=== PATIENT | male | born 1935 | race Caucasian/White ===

== ENCOUNTER 2018-06-15 20:50 | Inpatient (IN) ==
[2018-06-16] MEDS ORDERED: Ipratropium/Albuterol Neb 3 ML IH PRN (00:16)
[2018-06-16] MEDS ORDERED: Nitroglycerin 0.4 MG TAB.SUBL SL PRN (00:17)
[2018-06-16] MEDS ORDERED: Isovue-370 500 ML BOTTLE IVP ONE (00:21)
[2018-06-16] MEDS ORDERED: Dextrose Gel 15 GM/37.5 ML TUBE PO PRN ×2 (00:24)
[2018-06-16] MEDS ORDERED: *HR* Dextrose 50 % in Water (Syg) 50 ML SYRINGE IVP PRN (00:24)
[2018-06-16] MEDS ORDERED: 0.9 % Sodium Chloride 1,000 ML IVC SCH (00:30)
--- NOTE | 2018-06-16 00:49 | Internal Med History&Physical ---
Date of Encounter: 06/16/18 Time of Encounter: 00:45 Internal Medicine - H&P: HPI Chief complaint: hand pain Admitted From: Home Plans for Post Hospital Care: Home History of present illness: Mani Nowak is an 83 year old man with coronary artery disease s/p CABG, atrial fibrillation on warfarin, diabetes on metformin and hypertension who presents here on transfer from [facility] where presented with complaints of 2 days of right hand pain and swelling. He denies specific trauma to the area but does report frequent falls. At [facility] he was given 1 dose of ceftriaxone to cover his cellulitis and presumed UTI because of a slightly abnormal UA. Here he reports feeling generally well other than pain in his hand. He is a rather poor historian and does not give much pertinent information. Past Med Surg Social Fam HX - Past Medical History Medical history: hyperlipidemia, hypertension, myocardial infarction - Past Surgical History Surgical History: appendectomy, cholecystectomy Additional surgical history: CABG - Social History Smoking Status: Former smoker Smokeless Tobacco Status: No Alcohol use: none Drug use: none All Systems PM: A 10-system review of systems was performed and is negative for pertinent findings except as documented above in the HPI. Family history is noncontributory. - Constitutional Vitals: Temp Pulse Resp BP Pulse Ox 98 F 76 16 126/70 94 06/16/18 00:16 06/16/18 00:16 06/16/18 00:16 06/16/18 00:16 06/16/18 00:16 Exam: Vitals: Reviewed General: Well developed elderly man lying in bed in NAD. Skin: Warm and supple. HEENT: Moist mucous membranes. No conjunctivae pallor. Neck: No lymphadenopathy. No JVD. No carotid bruits. No palpable thyroid. Chest: Normal thoracic expansion. Normal breath sounds. Clear to auscultation. Heart: Irregularly irregular. Abdomen: Non-distended, soft and non-tender to palpation. No peritoneal reaction. Extremities: Right hand with mild erythema and dorsal swelling with limited movement at the MCP and PIP joints, tender to palpation. Neurological: Awake, alert and oriented to person, place and time. No focal deficits. Psych: Affect appropriate. - Assessment and plan (1) Cellulitis of right hand Current Visit: Yes Status: Acute Assessment and plan: Will obtain blood cultures and start IV vancomycin. Will send for CT w/ contrast for more thorough evaluation. (2) Hx of CABG Current Visit: Yes Status: Acute Assessment and plan: Asymptomatic. Continue daily aspirin & statin. (3) Diabetes mellitus Current Visit: Yes Status: Acute Assessment and plan: Noted to be on metformin. Will place on insulin sliding scale for now. 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 Qualifiers: Hypertension type: essential hypertension Qualified Code(s): I10 - Essential (primary) hypertension (5) Afib Current Visit: Yes Status: Acute Assessment and plan: Will place on telemetry. Seen to have a subtherapeutic INR. Will continue daily warfarin. Qualifiers: Atrial fibrillation type: chronic Qualified Code(s): I48.2 - Chronic atrial fibrillation - Time Spent With Patient Total time spent is greater than 50% in coordination of care (as documented) at patient's floor/unit and/or counseling patient: Greater than 35 minutes
[2018-06-16 01:27] LABS: INR 1.1; Prothrombin Time 12.6 Seconds (9.4-12.1)
[2018-06-16 01:28] LABS: Albumin 3.7 g/dL (3.5-5.7); Albumin/Globulin Ratio 1.3 (1.1-2.2); Bilirubin,Direct 0.8 mg/dL (0.0-0.2); Bilirubin,Indirect 1.7 mg/dL (0.0-1.2); Bilirubin,Total 2.5 mg/dL (0.3-1.0); Globulin 2.9 g/dL (2.4-3.5); Total Protein 6.6 g/dL (6.4-8.9)
[2018-06-16 01:29] LABS: Activated Partial Thrombo Time 30.7 Seconds (26.0-36.0); BUN/Creatinine Ratio 19 (6-26); Blood Urea Nitrogen 18 mg/dL (8-23); Carbon Dioxide 26 mEq/L (23-29); Chloride 102 mEq/L (98-107); Glucose 131 mg/dL (70-105); Osmolality,Calculated 286 (280-300); Potassium 3.5 mEq/L (3.5-5.1); Sodium 136 mEq/L (136-145); eGFR For Non-African Americans > 60 (> 60)
[2018-06-16 01:46] LABS: Basophils # 0.1 K/mcL (0.0-0.2); Basophils % 0.5 %; Eosinophils # 0.1 K/mcL (0.0-0.6); Hematocrit 39.4 % (37.5-50.1); Hemoglobin 13.8 g/dL (12.9-16.9); Immature Granulocytes % 0.5 % (0-4); Immature Platelets 3.3 % (1.1-6.1); Lymphocytes # 3.5 K/mcL (0.6-4.6); Lymphocytes % 27.6 %; Mean Corpuscular Volume 97.5 fL (83.0-100.0); Mean Platelet Volume 9.6 fL (9.4-12.4); Monocytes # 1.8 K/mcL (0.0-1.3); Monocytes % 14.4 %; Neutrophils # 7.1 K/mcL (1.6-8.9); Platelet Count 219 K/mcL (140-400); Red Blood Count 4.04 M/mcL (4.19-5.50); Red Cell Distribution Width 13.1 % (11.5-14.5)
[2018-06-16 01:47] LABS: Mean Corpuscular Hemoglobin 34.2 pg (28.0-33.3)
[2018-06-16] MEDS ORDERED: *HR* Warfarin 3 MG TABLET PO ONE (02:04)
[2018-06-16] MEDS: *HR* Enoxaparin 100 MG/ML SYRINGE SQ SCH ×2 (05:00→18:22)
[2018-06-16 05:13] LABS: Bilirubin,Urine Negative (Negative); Blood,Urine Negative (Negative); Clarity,Urine Clear (Clear); Color,Urine Dark Yellow (Yellow); Glucose,Urine (UA) 100 mg/dL (Normal); Ketones,Urine Trace mg/dL (Negative); Leukocyte Esterase,Urine Trace (Negative); Nitrite,Urine Positive (Negative); PH,Urine 5.5 pH Units (5.0-8.0); Protein,Urine Trace mg/dL (Neg-Trace); Urobilinogen,Urine Normal (Normal)
[2018-06-16 05:17] LABS: Bacteria,Urine Few per hpf (None-Few); Hyaline Casts,Urine None Seen per lpf (None-Few); RBC,Urine 0-3 per hpf (0-3)
[2018-06-16] MEDS ORDERED: *HR* Heparin 5,000 UNIT/ML VIAL SQ SCH (06:00)
--- NOTE | 2018-06-16 09:15 | Event Note ---
Date of Encounter: 06/16/18 Time of Encounter: 09:14 Patient seen and examined earlier this am by hospitalist services. Currently denies any pain or discomfort. R arm with strong radial pulse- he is unable to close hand- encouraged patient to keep R arm elevated- warm compresses
[2018-06-16] MEDS: Cholecalciferol (D-3) 1,000 UNIT TABLET PO SCH (10:28)
[2018-06-16] MEDS: Aspirin 81 MG TAB.CHEW PO SCH (10:28)
[2018-06-16] MEDS: Insulin LISPRO 300 UNITS/3 ML VIAL SQ SCH ×4 (10:30→20:20)
[2018-06-16] MEDS ORDERED: Warfarin perPT PO PRN (18:00)
[2018-06-16] MEDS: *HR* HYDROcodone/Acet 5/325 mg TABLET PO PRN (19:40)
[2018-06-17 04:24] LABS: BUN/Creatinine Ratio 22 (6-26); Blood Urea Nitrogen 21 mg/dL (8-23); Calcium 9.1 mg/dL (8.6-10.3); Carbon Dioxide 26 mEq/L (23-29); Chloride 104 mEq/L (98-107); Glucose 106 mg/dL (70-105); Osmolality,Calculated 289 (280-300); Potassium 3.7 mEq/L (3.5-5.1); Sodium 138 mEq/L (136-145); eGFR For Non-African Americans > 60 (> 60)
[2018-06-17 04:40] LABS: Basophils # 0.1 K/mcL (0.0-0.2); Eosinophils # 0.4 K/mcL (0.0-0.6); Eosinophils % 3.4 %; Hematocrit 39.6 % (37.5-50.1); Hemoglobin 13.6 g/dL (12.9-16.9); Immature Granulocytes % 0.7 % (0-4); Immature Platelets 4.4 % (1.1-6.1); Lymphocytes % 26.1 %; Mean Corpuscular HGB Conc 34.3 g/dL (31.6-35.5); Mean Corpuscular Hemoglobin 33.5 pg (28.0-33.3); Mean Platelet Volume 10.2 fL (9.4-12.4); Monocytes # 1.5 K/mcL (0.0-1.3); Monocytes % 12.9 %; Neutrophils # 6.3 K/mcL (1.6-8.9); Platelet Count 225 K/mcL (140-400); Red Blood Count 4.06 M/mcL (4.19-5.50); Red Cell Distribution Width 13.1 % (11.5-14.5); Segmented Neutrophils % 55.9 %
[2018-06-17 04:42] LABS: Mean Corpuscular Volume 97.5 fL (83.0-100.0)
[2018-06-17] MEDS: *HR* Enoxaparin 100 MG/ML SYRINGE SQ SCH ×2 (06:11→17:41)
[2018-06-17] MEDS: Insulin LISPRO 300 UNITS/3 ML VIAL SQ SCH ×4 (08:09→21:32)
[2018-06-17] MEDS: Cholecalciferol (D-3) 1,000 UNIT TABLET PO SCH (08:27)
[2018-06-17] MEDS: Aspirin 81 MG TAB.CHEW PO SCH (08:27)
[2018-06-17] MEDS: *HR* HYDROcodone/Acet 5/325 mg TABLET PO PRN (08:31)
--- NOTE | 2018-06-17 10:16 | Internal Med Progress Note ---
Hospitalist Progress Note - Encounter Date of Encounter: 06/17/18 Time of Encounter: 10:16 - Subjective Interval History: Patient was seen and examined at bedside. Currently denies any pain or discomfort. I did review tx plan with patient who verbalized understanding - Exam Vitals: Temp Pulse Resp BP Pulse Ox 98.2 F 79 16 158/71 93 06/17/18 07:40 06/17/18 07:40 06/17/18 07:40 06/17/18 07:40 06/17/18 07:40 Exam: Vitals: Reviewed General: Well developed elderly man lying in bed in NAD. Skin: Warm and supple. HEENT: Moist mucous membranes. No conjunctivae pallor. Neck: No lymphadenopathy. No JVD. No carotid bruits. No palpable thyroid. Chest: Normal thoracic expansion. Normal breath sounds. Clear to auscultation. Heart: Irregularly irregular. Abdomen: Non-distended, soft and non-tender to palpation. No peritoneal reaction. Extremities: Right hand with mild erythema and dorsal swelling with limited movement at the MCP and PIP joints, tender to palpation. Neurological: Awake, alert and oriented to person, place and time. No focal deficits. Psych: Affect appropriate. - Assessment and Plan (1) Cellulitis of right hand Current Visit: Yes Status: Acute Assessment and Plan: Will obtain blood cultures and start IV vancomycin. Will send for CT w/ contrast for more thorough evaluation. 06/17/2018 Blood culture are pending cont with IV Vanc/ zosyn - added CT w/ contrast IMPRESSION: 1. Diffuse soft tissue swelling present about the right wrist and hand with no well-defined abscess identified. 2. No acute osseous abnormality. 3. Moderate polyarticular osteoarthritis. (2) Hx of CABG Current Visit: Yes Status: Acute Assessment and Plan: Asymptomatic. Continue daily aspirin & statin. 06/17/2018 No chest pain continue aspirin and statin (3) Diabetes mellitus Current Visit: Yes Status: Acute Assessment and Plan: Noted to be on metformin. Will place on insulin sliding scale for now. 06/17/2018 Accu-Cheks before meals at bedtime with sliding scale insulin. Hold oral metformin for now (4) HTN (hypertension) Current Visit: Yes Status: Acute Assessment and Plan: Will continue home anti-hypertensives. 06/17/2018 Blood pressure is controlled continue with home medications (5) Afib Current Visit: Yes Status: Acute Assessment and Plan: Will place on telemetry. Seen to have a subtherapeutic INR. Will continue daily warfarin. 06/17/2018 cont tele rate controlled - cont BB- cont warfain, monitor INR -subtherapeutic continue with Lovenox bridge - Time Spent with Patient Total time spent is greater than 50% in coordination of care (as documented) at patient's floor/unit and/or counseling patient: Internal Medicine: Result - Labs CBC & Chem 7: 06/17/18 03:22 06/17/18 03:22 Labs: Short CBC 06/17/18 Range/Units 03:22 WBC 11.3 H (4.3-11.1) K/mcL Hgb 13.6 (12.9-16.9) g/dL Hct 39.6 (37.5-50.1) % Plt Count 225 (140-400) K/mcL Neutrophils # 6.3 (1.6-8.9) K/mcL BMP 06/17/18 03:22 Sodium 138 Potassium 3.7 Chloride 104 Carbon Dioxide 26 BUN 21 Creatinine 0.94 Glucose 106 H Calcium 9.1 - ABG Interpretation ABG results: PT/INR, D-dimer PT 12.6 Seconds (9.4-12.1) H 06/16/18 00:50 - Impressions Impressions Hand CT 06/16/18 00:21 IMPRESSION: 1. Diffuse soft tissue swelling present about the right wrist and hand with no well-defined abscess identified. 2. No acute osseous abnormality. 3. Moderate polyarticular osteoarthritis. 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
[2018-06-17] MEDS: Piperacillin/Tazobactam 3.375 GM in 0.9 % Sodium Chloride Mini Bag 100 ML IVPB SCH (14:20)
[2018-06-17 15:26] LABS: INR 1.1; Prothrombin Time 12.3 Seconds (9.4-12.1)
[2018-06-17] MEDS ORDERED: *HR* Warfarin 5 MG TABLET PO ONE (18:00)
[2018-06-17] MEDS: Gabapentin 100 MG CAPSULE PO SCH (20:46)
[2018-06-18] MEDS: Piperacillin/Tazobactam 3.375 GM in 0.9 % Sodium Chloride Mini Bag 100 ML IVPB SCH ×2 (00:03→07:56)
[2018-06-18 04:40] LABS: INR 1.1; Prothrombin Time 12.8 Seconds (9.4-12.1)
[2018-06-18] MEDS: *HR* Enoxaparin 100 MG/ML SYRINGE SQ SCH (05:41)
[2018-06-18] MEDS ORDERED: Aminoglycoside Consult 1 EACH MC ONE (07:21)
[2018-06-18] MEDS: Insulin LISPRO 300 UNITS/3 ML VIAL SQ SCH ×4 (07:45→22:04)
[2018-06-18] MEDS: Multivit/Ca/Min/Fe/FA 1 TAB TABLET PO SCH (07:54)
[2018-06-18] MEDS: Cholecalciferol (D-3) 1,000 UNIT TABLET PO SCH (07:54)
[2018-06-18] MEDS: Aspirin 81 MG TAB.CHEW PO SCH (07:54)
[2018-06-18 10:27] LABS: BUN/Creatinine Ratio 18 (6-26); Blood Urea Nitrogen 18 mg/dL (8-23); Calcium 9.5 mg/dL (8.6-10.3); Carbon Dioxide 26 mEq/L (23-29); Chloride 103 mEq/L (98-107); Glucose 197 mg/dL (70-105); Osmolality,Calculated 291 (280-300); Potassium 3.8 mEq/L (3.5-5.1); Sodium 137 mEq/L (136-145); eGFR For Non-African Americans > 60 (> 60)
[2018-06-18 13:06] LABS: Basophils # 0.1 K/mcL (0.0-0.2); Basophils % 0.9 %; Eosinophils # 0.4 K/mcL (0.0-0.6); Eosinophils % 4.2 %; Hematocrit 39.4 % (37.5-50.1); Hemoglobin 13.4 g/dL (12.9-16.9); Immature Granulocytes % 0.8 % (0-4); Lymphocytes # 2.3 K/mcL (0.6-4.6); Lymphocytes % 21.7 %; Mean Platelet Volume 10.1 fL (9.4-12.4); Monocytes # 1.4 K/mcL (0.0-1.3); Monocytes % 13.2 %; Neutrophils # 6.2 K/mcL (1.6-8.9); Platelet Count 238 K/mcL (140-400); Red Blood Count 4.06 M/mcL (4.19-5.50); Segmented Neutrophils % 59.2 %
--- NOTE | 2018-06-18 14:05 | Internal Med Progress Note ---
Hospitalist Progress Note - Encounter Date of Encounter: 06/18/18 Time of Encounter: 14:02 - Subjective Interval History: Patient was seen and examined at bedside. He sitting up in a chair eating breakfast. Right hand is much improved he has almost recovered full range of motion. Denies any pain or discomfort at this time I did review the treatment p yen with the patient who verbalized understanding. - Exam Vitals: Temp Pulse Resp BP Pulse Ox 97.5 F L 65 16 119/62 98 06/18/18 11:24 06/18/18 11:24 06/18/18 11:24 06/18/18 11:24 06/18/18 11:24 Exam: Vitals: Reviewed General: Well developed elderly man lying in bed in NAD. Skin: Warm and supple. HEENT: Moist mucous membranes. No conjunctivae pallor. Neck: No lymphadenopathy. No JVD. No carotid bruits. No palpable thyroid. Chest: Normal thoracic expansion. Normal breath sounds. Clear to auscultation. Heart: Irregularly irregular. Abdomen: Non-distended, soft and non-tender to palpation. No peritoneal reaction. Extremities: Right hand with mild dorsal swelling with improved movement at the MCP and PIP joints Neurological: Awake, alert and oriented to person, place and time. No focal deficits. Psych: Affect appropriate. - Assessment and Plan (1) Cellulitis of right hand Current Visit: Yes Status: Acute Assessment and Plan: Will obtain blood cultures and start IV vancomycin. Will send for CT w/ contrast for more thorough evaluation. 06/17/2018 Blood culture are pending cont with IV Vanc/ zosyn - added CT w/ contrast IMPRESSION: 1. Diffuse soft tissue swelling present about the right wrist and hand with no well-defined abscess identified. 2. No acute osseous abnormality. 3. Moderate polyarticular osteoarthritis. 06/18/2018 Much improved today patient has almost full range of motion of right hand no erythremia noted mild edema Blood cultures with no growth to date We will switch to oral Bactrim DS 1 by mouth twice a day (2) Hx of CABG Current Visit: Yes Status: Acute Assessment and Plan: Asymptomatic. Continue daily aspirin & statin. 06/17/2018 No chest pain continue aspirin and statin 06/18/2018 Asymptomatic we will continue with home medications (3) Diabetes mellitus Current Visit: Yes Status: Acute Assessment and Plan: Noted to be on metformin. Will place on insulin sliding scale for now. 06/17/2018 Accu-Cheks before meals at bedtime with sliding scale insulin. Hold oral metformin for now 06/18/2018 Glucose has been stable continue with Accu-Cheks before meals at bedtime with sliding scale insulin continue to hold metformin at this time (4) HTN (hypertension) Current Visit: Yes Status: Acute Assessment and Plan: Will continue home anti-hypertensives. 06/17/2018 Blood pressure is controlled continue with home medications 06/18/2018 Currently stable continue with all medications (5) Afib Current Visit: Yes Status: Acute Assessment and Plan: Will place on telemetry. Seen to have a subtherapeutic INR. Will continue daily warfarin. 06/17/2018 cont tele rate controlled - cont BB- cont warfain, monitor INR -subtherapeutic continue with Lovenox bridge 06/18/2018 Rate controlled continue with beta kayleigh warfarin INR was subtherapeutic continue with Lovenox bridge-patient does have a history of falls we will discuss risk and benefits of anticoagulation with the patient he may benefit from our close concerns about patient's ability to take medications. He did make a comment sometimes" I take my medications at times I take too many" (6) Subtherapeutic international normalized ratio (INR) Current Visit: Yes Status: Acute Assessment and Plan: 1 patient is on Coumadin for atrial fibrillation presented with subtherapeutic INR 1.1 bridged with Lovenox. Patient reports that he is noncompliant with his medications. He also has history of frequent falls-risks and benefits of anticoagulation will need to be reviewed with the patient. Consulting social work case manager for home health PT OT evaluation (7) Complicated UTI (urinary tract infection) Current Visit: Yes Status: Acute Assessment and Plan: 1 patient did arrive from outlying facility time urinalysis indicative of UTI urine culture growing staphylococcus epi. Patient was originally on vancomycin and Zosyn which was sensitive to vancomycin. We will convert to oral Macrobid and monitor closely. Currently denies any urinary symptoms (8) Frequent falls Current Visit: Yes Status: Acute Assessment and Plan: Patient reports that he experienced frequent falls and has had approximately 3 falls in the past month. Patient is on anticoagulation which is concerning left discussed risk and benefits. PT OT has been consulted patiently placed on fall precautions - Time Spent with Patient Total time spent is greater than 50% in coordination of care (as documented) at patient's floor/unit and/or counseling patient: Internal Medicine: Result - Labs CBC & Chem 7: 06/18/18 10:54 06/18/18 09:39 Labs: Short CBC 06/18/18 Range/Units 10:54 WBC 10.5 (4.3-11.1) K/mcL Hgb 13.4 (12.9-16.9) g/dL Hct 39.4 (37.5-50.1) % Plt Count 238 (140-400) K/mcL Neutrophils # 6.2 (1.6-8.9) K/mcL BMP 06/18/18 09:39 Sodium 137 Potassium 3.8 Chloride 103 Carbon Dioxide 26 BUN 18 Creatinine 1.00 Glucose 197 H Calcium 9.5 - ABG Interpretation ABG results: PT/INR, D-dimer PT 12.8 Seconds (9.4-12.1) H 06/18/18 04:01 Consult Discharge Plan - Plan Referrals: NONE,PCP [Primary Care Provider] - (3) Diabetes mellitus Qualifiers: 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
[2018-06-18] MEDS: Nitrofurantoin (BID) 100 MG CAPSULE PO SCH (17:07)
[2018-06-18] MEDS ORDERED: *HR* Warfarin 5 MG TABLET PO ONE (18:00)
[2018-06-18] MEDS: Sulfamethoxazole/Trimeth DS 1 EACH TABLET PO SCH (22:08)
[2018-06-18] MEDS: Gabapentin 100 MG CAPSULE PO SCH (22:08)
[2018-06-19] MEDS: *HR* HYDROcodone/Acet 5/325 mg TABLET PO PRN (03:54)
[2018-06-19 04:50] LABS: INR 1.1; Prothrombin Time 12.6 Seconds (9.4-12.1)
[2018-06-19 05:09] LABS: BUN/Creatinine Ratio 20 (6-26); Blood Urea Nitrogen 20 mg/dL (8-23); Calcium 9.2 mg/dL (8.6-10.3); Carbon Dioxide 25 mEq/L (23-29); Chloride 104 mEq/L (98-107); Glucose 129 mg/dL (70-105); Osmolality,Calculated 292 (280-300); Potassium 4.4 mEq/L (3.5-5.1); Sodium 139 mEq/L (136-145); eGFR For Non-African Americans > 60 (> 60)
[2018-06-19 05:17] LABS: Basophils # 0.1 K/mcL (0.0-0.2); Basophils % 1.1 %; Eosinophils # 0.5 K/mcL (0.0-0.6); Eosinophils % 4.7 %; Hematocrit 39.2 % (37.5-50.1); Hemoglobin 13.6 g/dL (12.9-16.9); Immature Granulocytes % 0.8 % (0-4); Lymphocytes # 2.9 K/mcL (0.6-4.6); Lymphocytes % 25.7 %; Mean Corpuscular Hemoglobin 34.2 pg (28.0-33.3); Mean Corpuscular Volume 98.5 fL (83.0-100.0); Monocytes # 1.4 K/mcL (0.0-1.3); Neutrophils # 6.3 K/mcL (1.6-8.9); Platelet Count 205 K/mcL (140-400); Red Blood Count 3.98 M/mcL (4.19-5.50); Red Cell Distribution Width 14.2 % (11.5-14.5); Segmented Neutrophils % 55.7 %
[2018-06-19 05:18] LABS: Mean Corpuscular HGB Conc 34.7 g/dL (31.6-35.5)
[2018-06-19] MEDS: Insulin LISPRO 300 UNITS/3 ML VIAL SQ SCH ×3 (09:25→15:59)
[2018-06-19] MEDS: Sulfamethoxazole/Trimeth DS 1 EACH TABLET PO SCH (09:36)
[2018-06-19] MEDS: Cholecalciferol (D-3) 1,000 UNIT TABLET PO SCH (09:37)
[2018-06-19] MEDS: Aspirin 81 MG TAB.CHEW PO SCH (09:37)
[2018-06-19] MEDS: Multivit/Ca/Min/Fe/FA 1 TAB TABLET PO SCH (09:37)
[2018-06-19] MEDS: Nitrofurantoin (BID) 100 MG CAPSULE PO SCH ×2 (09:37→16:21)
[2018-06-19 11:17] VITALS: BP 130/77
--- NOTE | 2018-06-19 13:32 | Discharge Summary ---
- NOTES TO OUTPATIENT PROVIDER Notes to Outpatient Provider: Cellulitis of right hand/UTI received. IV Vanco and Zosyn and transitioned to Bactrim and Macrobid for UTI-monitor outpatient labs Orders not resulted at time of discharge: Pending orders 06/16/18 00:45 Culture,Blood [BC] Stat 06/20/18 04:00 PT/INR [Prothrombin Time INR] [COAG] AM 0400 Date of Encounter: 06/19/18 Time of Encounter: 13:19 - Discharge Diagnosis (1) Cellulitis of right hand Priority: Primary Status: Acute (2) Hx of CABG Priority: Secondary Status: Acute (3) Diabetes mellitus Priority: Secondary Status: Acute Qualifiers: Diabetes mellitus type: type 2 Diabetes mellitus usp insulin use: without usp use Diabetes mellitus complication status: with unspecified complications Qualified Code(s): E11.8 - Type 2 diabetes mellitus with unspecified complications (4) HTN (hypertension) Priority: Secondary Status: Acute Qualifiers: Hypertension type: essential hypertension Qualified Code(s): I10 - Essent ial (primary) hypertension (5) Afib Priority: Secondary Status: Acute Qualifiers: Atrial fibrillation type: chronic Qualified Code(s): I48.2 - Chronic atrial fibrillation (6) Subtherapeutic international normalized ratio (INR) Priority: Secondary Status: Acute (7) Complicated UTI (urinary tract infection) Priority: Secondary Status: Acute (8) Frequent falls Priority: Secondary Status: Acute Hospital course: Mr. Nowak is a 83 year old male 's medical history of coronary artery disease status post CABG atrial fibrillation diabetes and hypertension presented as a transfer from [facility] after experiencing 2 days of right hand pain and swelling. No trauma or falls reported. He did have a abnormal UA Patient did receive IV antibiotics started on vancomycin and Zosyn. Blood cultures are negative to date-urine culture shows staph epi sensitive to Macrobid. Patient currently is not on any Coumadin due to history of falls. Swelling and redness and hand did improve after receiving antibiotics. He will be switched to oral antibiotics for now 3 days to complete 7 day course. Currently patient is hemodynamically stable he will be discharged back home currently receiving hospice which we will resume once discharged - Time Spent with Patient Total time spent providing and/or coordinating discharge services: - Discharge Medications Prescriptions: Nitrofurantoin (BID) [Macrobid] 100 mg PO BIDWM #6 capsule Sulfamethoxazole/Trimeth DS [Bactrim Ds] 1 each PO BID #6 tablet Home Medications: Cyanocobalamin/Folic AC/Vit B6 [Folbic Tablet] 1 tab PO BID 06/16/18 [History] Gabapentin [Neurontin] 100 mg PO HS 06/16/18 [History] HYDROcodone/Acet 5/325 mg [[place] 5-325 mg] 1 tab PO Q6H PRN 06/16/18 [History] Metformin HCl 500 mg PO BID 06/16/18 [History] Metoprolol Tartrate 50 mg PO BID 06/16/18 [History] Simvastatin [Zocor] 10 mg PO HS 06/16/18 [History] Triamterene/HCTZ 37.5/25mg [Dyazide] 1 tab PO DAILY 06/16/18 [History] Nitrofurantoin (BID) [Macrobid] 100 mg PO BIDWM #6 capsule 06/19/18 [Rx] Sulfamethoxazole/Trimeth DS [Bactrim Ds] 1 each PO BID #6 tablet 06/19/18 [Rx] Allergies/Adverse Reactions: Allergy/AdvReac Type Severity Reaction Status Date / Time No Known Allergies Allergy Verified 06/16/18 14:41 Date of admission: 06/17/18 18:49 Primary care physician: PCP NONE Consults: 06/16/18 00:39 PT [Consult to Physical Therapy] [CONS] Routine Comment: Evaluate, develop and implement POC Reason for Consult: 83 year old man admitted for hand cellulitis who reports unsteady gait and frequent falls leading to trauma. Does patient have active BEDREST order?: No Is patient medically & hemodynamically stable?: Yes Patient assessed for mobility or mobilized this visit?: Yes Discharging clinician: Marie Marquez Anticipated date of discharge: 06/19/18 - Constitutional Vitals: Temp Pulse Resp BP Pulse Ox 97.5 F L 61 16 130/77 99 06/19/18 11:16 06/19/18 11:16 06/19/18 11:16 06/19/18 11:16 06/19/18 11:16 Exam: Vitals: Reviewed General: Well developed elderly man lying in bed in NAD. Skin: Warm and supple. HEENT: Moist mucous membranes. No conjunctivae pallor. Neck: No lymphadenopathy. No JVD. No carotid bruits. No palpable thyroid. Chest: Normal thoracic expansion. Normal breath sounds. Clear to auscultation. Heart: Irregularly irregular. Abdomen: Non-distended, soft and non-tender to palpation. No peritoneal reaction. Extremities: Right hand with mild dorsal swelling with improved movement at the MCP and PIP joints Neurological: Awake, alert and oriented to person, place and time. No focal deficits. Psych: Affect appropriate. - Patient Status Disposition: Home, Self-Care Condition: Good Functional capacity at discharge: independent ambulation - Discharge Instructions Instructions: Urinary Tract Infection in Men (DC), Cellulitis (DC) Follow Up With: Jamie Doyle MD [Non-Partnered Physician] - - Diet and Activity Activity: increase activity as tolerated
== END 2018-06-19 17:55 | disposition home or self-care (01) | DRG 603 ==
LOC: 3BNU
PROVIDERS: ADMIT Internal Medicine; ATTEND Internal Medicine